=== PATIENT | female | born 1975 | race Caucasian/White ===

== ENCOUNTER 2017-08-08 15:59 | Inpatient (IN) | payer BC ==
[2017-08-08] MEDS ORDERED: NS 1000 ML 1,000 ML ONE (16:05)
[2017-08-08] MEDS ORDERED: ZOFRAN INJ 4 MG VIAL ONE (16:07)
[2017-08-08] MEDS ORDERED: NS 1000 ML 1,000 ML IV ONE (16:16)
[2017-08-08] MEDS ORDERED: ZOFRAN INJ 4 MG VIAL IVP ONE (16:16)
--- NOTE | 2017-08-08 16:19 | DR.NAUSEAF ---
HPI - Time Seen Time seen: 16:15 - Primary Care Physician Primary Care Physician: Declan BARKLEY - Complaints Chief Complaint Doctors Comments: Patient presents with complaint of nausea and vomiting for 3-4 days she has not been able to keep anything down. Chief Complaint:: PT. C/O NAUSEA/VOMITING THAT BEGAN ON MONDAY. PT. UNABLE TO KEEP ANYTHING DOWN. PT. SEEN PCP YESTERDAY AND WAS SWABBED FOR THE FLU WHICH TESTED NEGATIVE. PT. C/O WEAKNESS AND DIZZINESS. - Source History Provided: Patient - Mode of Arrival Mode of Arrival: Wheelchair - Timing Onset of Chief Complaint: 08/03/17 PMH - PMH Past Medical History: Yes Past Medical History: Hypertension, Hyperthyroidism Past Surgical History: Yes Surgical History: Cholecystectomy, [employer] Surgery, Hysterectomy - Family History History of Family Medical Conditions: No - Social History Does patient currently use any type of tobacco product: Yes Have you used tobacco products in the last 12 months: Yes Type of Tobacco Use: Cigarettes Does any household member use tobacco: No Alcohol Use: None Do you use any recreational Drugs:: No Lives With: Family Lives Where: Home - infectious screening In the last 2 months have you had wt loss of >10#?: NO Have you had fever, night sweats or hemotysis?: No Have you traveled outside the country in the last 6 months?: No Isolation: Standard ROS - Review of Systems Eyes: No Symptoms Reported ENTM: No Symptoms Reported Respiratoy: No Symptoms Reported Cardiovascular: No Symptoms Reported Gastrointestinal/Abdominal: No Symptoms Reported Genitourinary: No Symptoms Reported Neurological: No Symptoms Reported Musculoskeletal: No Symptoms Reported Integumentary: Change in Color (pale) Hematologic/Lymphatic: No Symptoms Reported Endocrine: No Symptoms Reported Psychiatric: No Symptoms Reported All Other Systems: Reviewed and Negative PE - Vital Signs Vitals: Temperature 97.4 F Pulse Rate 122 Respiratory Rate 22 Blood Pressure 110/68 O2 Sat by Pulse Oximetry 98 - General Limitations: No Limitations General Appearance: Alert, In No Apparent Distress - Head Head Exam: Normal Inspection, Atraumatic - Eyes Eye exam: Normal Appearance, PERRL, EOMI - ENT ENT Exam: Normal Exam - Neck Neck Exam: Normal Inspection, Full ROM - Chest Chest Inspection: Normal Inspection - Respiratory Respiratory Exam: Normal Lung Sounds Bilat Respiratory Exam: Bilateral Clear to Auscultation - Cardiovascular Cardiovascular Exam: Regular Rate, Normal Rhythm - Abdominal Exam Abdominal Exam: Normal Inspection, Normal Bowel Sounds Abdominal Tenderness: negative: RUQ, RLQ, LUQ, LLQ, Epigastrium, Suprapubic, Diffuse, Mild, Moderate, Severe, Other - Rectal Rectal Exam: Deferred - External Exam: Female: Deferred : Speculum Exam (Female): Deferred : Bimanual Exam (female): Deferred - Extremities Extremities Exam: Full ROM. negative: Normal Capillary Refill (prolong) - Back Back Exam: Normal Inspection - Neurologic Neurological Exam: Alert, Oriented X3, CN II-XII Intact - Psychiatric Psychiatric Exam: Normal Affect - Skin Skin Exam: Warm, Dry, Intact Course - Reevaluation 1st: Improved (decreased in vomiting, continued nausea) - Consultation Called: 17:15 (Dr Amador agreed to admit for further evaluation and treatment) ROR - Labs Reviewed Result Diagrams: 08/08/17 16:08 08/08/17 16:08 Laboratory: WBC 14.5 X10^3/uL (3.6-10.0) H 08/08/17 16:08 RBC 5.05 X10^6/uL (3.5-5.4) 08/08/17 16:08 Hgb 12.6 g/dL (12.0-16.0) 08/08/17 16:08 Hct 38.9 % (36.0-47.0) 08/08/17 16:08 MCV 77.2 fL (80.0-100.0) L 08/08/17 16:08 MCH 25.1 pg (27.0-34.0) L 08/08/17 16:08 MCHC 32.5 g/dL (33.0-35.0) L 08/08/17 16:08 RDW 14.3 % (11.6-16.5) 08/08/17 16:08 Plt Count 426 X10^3/uL (150.0-450.0) 08/08/17 16:08 Plt Count Comment Adequate (ADEQUATE) 08/08/17 16:08 MPV 8.9 fL (7.4-11.0) 08/08/17 16:08 Neut % 71.3 % (42.0-75.0) 08/08/17 16:08 Lymph % 17.0 % (21.0-51.0) L 08/08/17 16:08 Logan % 11.1 % (0.0-13.0) 08/08/17 16:08 Eos % 0.2 % (0.9-2.9) L 08/08/17 16:08 Baso % 0.4 % (0.2-1.0) 08/08/17 16:08 Neut # 10.3 x10^3/uL (2.2-4.8) H 08/08/17 16:08 Lymph # 2.5 X10^3/uL (1.3-2.9) 08/08/17 16:08 Logan # 1.6 x10^3/uL (0.3-0.8) H 08/08/17 16:08 Eos # 0.0 x10^3/uL (0.0-0.2) 08/08/17 16:08 Baso # 0.1 X10^3/uL (0.0-0.1) 08/08/17 16:08 Absolute Nucleated RBC 0.0 /100WBC 08/08/17 16:08 Plt Morphology Comment Normal (NORMAL) 08/08/17 16:08 RBC Morphology Abnormal (NORMAL) A 08/08/17 16:08 Hypochromasia Slight A 08/08/17 16:08 Sodium 140 mmol/L (136-145) 08/08/17 16:08 Corrected Sodium 141 mmol/L (136-145) 08/08/17 16:08 Potassium 2.9 mmol/L (3.5-5.1) L* 08/08/17 16:08 Chloride 87 mmol/L (98-107) L 08/08/17 16:08 Carbon Dioxide 43.4 mmol/L (21-32) H* 08/08/17 16:08 BUN 58 mg/dL (7-18) H 08/08/17 16:08 Creatinine 2.82 mg/dL (0.55-1.02) H 08/08/17 16:08 Est GFR (MDRD) Af Amer 24 (>60) L 08/08/17 16:08 Est GFR (MDRD) Non-Af 20 (>60) L 08/08/17 16:08 Glucose 149 mg/dL (65-99) H 08/08/17 16:08 Calcium 9.7 mg/dL (8.5-10.1) 08/08/17 16:08 Corrected Calcium TNP 08/08/17 16:08 Total Bilirubin 0.30 mg/dL (0.2-1.0) 08/08/17 16:08 AST 107 Units/L (15-37) H 08/08/17 16:08 ALT 84 Units/L (12-78) H 08/08/17 16:08 Alkaline Phosphatase 128 Units/L (46-116) H 08/08/17 16:08 Total Protein 8.2 g/dL (6.4-8.2) 08/08/17 16:08 Albumin 4.2 g/dL (3.4-5.0) 08/08/17 16:08 Globulin 4.0 g/dL (2.5-4.5) 08/08/17 16:08 Albumin/Globulin Ratio 1.1 Ratio (1.1-2.1) 08/08/17 16:08 - Diagnosis Discharge Problem: Prerenal azotemia, Hypokalemia, Nausea and vomiting in adult patient - Discharge Plan Condition: Stable - Follow ups/Referrals Follow ups/Referrals: ERWIN BARKLEY [Primary Care Provider] - 3 days - Instructions
[2017-08-08 16:30] LABS: BASOPHILS # (AUTO) 0.1 X10^3/uL (0.0-0.1); BASOPHILS % (AUTO) 0.4 % (0.2-1.0); EOSINOPHILS % (AUTO) 0.2 % (0.9-2.9); HEMATOCRIT 38.9 % (36.0-47.0); HEMOGLOBIN 12.6 g/dL (12.0-16.0); LYMPHOCYTES # (AUTO) 2.5 X10^3/uL (1.3-2.9); MEAN CORPUSCULAR HEMOGLOBIN 25.1 pg (27.0-34.0); MEAN CORPUSCULAR HGB CONC 32.5 g/dL (33.0-35.0); MEAN CORPUSCULAR VOLUME 77.2 fL (80.0-100.0); MEAN PLATELET VOLUME 8.9 fL (7.4-11.0); MONOCYTES # (AUTO) 1.6 x10^3/uL (0.3-0.8); MONOCYTES % (AUTO) 11.1 % (0.0-13.0); NEUTROPHILS # (AUTO) 10.3 x10^3/uL (2.2-4.8); NEUTROPHILS % (AUTO) 71.3 % (42.0-75.0); PLATELET COUNT 426 X10^3/uL (150.0-450.0); RED BLOOD COUNT 5.05 X10^6/uL (3.5-5.4); RED CELL DISTRIBUTION WIDTH 14.3 % (11.6-16.5); WHITE BLOOD COUNT 14.5 X10^3/uL (3.6-10.0)
[2017-08-08 16:40] LABS: ALANINE AMINOTRANSFERASE 84 Units/L (12-78); ALBUMIN 4.2 g/dL (3.4-5.0); ALKALINE PHOSPHATASE 128 Units/L (46-116); ASPARTATE AMINO TRANSFERASE 107 Units/L (15-37); BLOOD UREA NITROGEN 58 mg/dL (7-18); CALCIUM 9.7 mg/dL (8.5-10.1); CHLORIDE 87 mmol/L (98-107); COR NA(FOR HYPERGLY) 141 mmol/L (136-145); CREATININE 2.82 mg/dL (0.55-1.02); SODIUM 140 mmol/L (136-145); TOTAL PROTEIN 8.2 g/dL (6.4-8.2); eGFR BLACK RACES 24 (>60); eGFR NON BLACK RACES 20 (>60)
[2017-08-08 16:42] LABS: CARBON DIOXIDE 43.4 mmol/L (21-32)
[2017-08-08 16:57] LABS: PLATELET MORPHOLOGY COMMENT NORMAL (NORMAL)
[2017-08-08 16:58] LABS: HYPOCHROMASIA SLIGHT
--- NOTE | 2017-08-08 16:59 | RAD ---
HISTORY: Vomiting, weakness Study: Acute abdominal series Comparison: None Findings: The lungs are clear without consolidation, effusion or pneumothorax. The cardiac and mediastinal con tours are within normal limits. There is a large volume of well-formed retained stool in the colon and rectum suggesting constipation . No gross free intraperitoneal air. No pathological soft tissue mass or calcification can be observe d. The bony structures are grossly intact. IMPRESSION: 1. No acute cardiopulmonary disease. 2. Large volume of retained stool in the colon and rectum suggesting constipation. Reported By:
[2017-08-08] MEDS ORDERED: NS + KCL 20 MEQ/L 1,000 ML IV ONE ×2 (17:36→22:28)
[2017-08-08] MEDS: K-LYTE EFFERVESCENT PO SCH (17:40)
[2017-08-08] MEDS: NS IV SCH ×2 (17:41)
[2017-08-08] MEDS: POTASSIUM CHLORIDE IV SCH ×2 (17:41)
[2017-08-08 17:51] LABS: BILIRUBIN,URINE NEGATIVE (NEGATIVE); BLOOD/HEMOGLOBIN,URINE 1+ (NEGATIVE); GLUCOSE, URINE NEGATIVE (NEGATIVE); KETONES,URINE NEGATIVE (NEGATIVE); LEUKOCYTE ESTERASE ,URINE 1+ (NEGATIVE); NITRITES,URINE NEGATIVE (NEGATIVE); PROTEIN,URINE 2+ (NEGATIVE); UROBILINOGEN,URINE NORMAL (NORMAL)
[2017-08-08] MEDS ORDERED: NS 1000 ML 1,000 ML with POTASSIUM CHLORIDE INJ 10 MEQ VIAL 10 MEQ IV SCH ×2 (18:00)
[2017-08-08 18:01] LABS: COLOR,URINE YELLOW (YELLOW)
[2017-08-08 18:02] LABS: APPEARANCE,URINE SLIGHTLY HAZY (CLEAR); BACTERIA,URINE TRACE /HPF (NEGATIVE); HYALINE CASTS, URINE MODERATE /LPF (NEGATIVE); MUCUS,URINE MANY /HPF (NEGATIVE); RBC,URINE 0-2 /HPF (NEGATIVE); SQUAMOUS EPITHELIAL CELL,UR RARE /HPF (NEGATIVE)
[2017-08-08] MEDS ORDERED: COLACE CAP 100 MG PO PRN (19:33)
[2017-08-08] MEDS ORDERED: MILK OF MAGNESIA PO PRN (19:33)
[2017-08-08] MEDS ORDERED: PHENERGAN INJ 25 MG IV PRN (19:45)
[2017-08-08] MEDS ORDERED: MAG-OX TAB PO PRN (22:28)
[2017-08-08] MEDS ORDERED: K-LYTE EFFERVESCENT PO PRN (22:28)
[2017-08-08] MEDS ORDERED: POTASSIUM CHL 60 MEQ/NS 0.45% 500 ML IV PRN (22:28)
[2017-08-08] MEDS ORDERED: POTASSIUM CHLORIDE LIQ 20 MEQ UDC PO PRN (22:28)
[2017-08-08] MEDS ORDERED: POTASSIUM CHL 40 MEQ/NS 0.45% 500 ML IV PRN (22:28)
[2017-08-08] MEDS ORDERED: MAGNESIUM SULFATE 1 GM/100 mL PREMIX 1 GM/100 ML BAG IV PRN (22:28)
[2017-08-08] MEDS ORDERED: K-RIDER 10 MEQ/NS 100 ML 10 MEQ/100 ML BAG IV PRN (22:28)
[2017-08-09] MEDS ORDERED: NS 100 ML IV 100 ML IV ONE (00:10)
[2017-08-09] MEDS ORDERED: NS 500 ML IV 500 ML IV ONE (02:31)
[2017-08-09] MEDS: NS IV SCH ×4 (03:19→09:24)
[2017-08-09] MEDS: POTASSIUM CHLORIDE IV SCH ×4 (03:19→09:24)
[2017-08-09] MEDS ORDERED: NS + KCL 20 MEQ/L 1,000 ML IV ONE (03:41)
[2017-08-09 06:25] LABS: BASOPHILS % (AUTO) 0.4 % (0.2-1.0); EOSINOPHILS # (AUTO) 0.1 x10^3/uL (0.0-0.2); EOSINOPHILS % (AUTO) 1.3 % (0.9-2.9); HEMOGLOBIN 9.7 g/dL (12.0-16.0); LYMPHOCYTES # (AUTO) 2.3 X10^3/uL (1.3-2.9); LYMPHOCYTES % (AUTO) 22.9 % (21.0-51.0); MEAN CORPUSCULAR HEMOGLOBIN 25.3 pg (27.0-34.0); MEAN CORPUSCULAR HGB CONC 32.3 g/dL (33.0-35.0); MEAN CORPUSCULAR VOLUME 78.3 fL (80.0-100.0); MEAN PLATELET VOLUME 8.9 fL (7.4-11.0); MONOCYTES # (AUTO) 1.1 x10^3/uL (0.3-0.8); MONOCYTES % (AUTO) 11.2 % (0.0-13.0); NEUTROPHILS # (AUTO) 6.5 x10^3/uL (2.2-4.8); NEUTROPHILS % (AUTO) 64.2 % (42.0-75.0); PLATELET COUNT 284 X10^3/uL (150.0-450.0); RED BLOOD COUNT 3.84 X10^6/uL (3.5-5.4); RED CELL DISTRIBUTION WIDTH 14.5 % (11.6-16.5); WHITE BLOOD COUNT 10.1 X10^3/uL (3.6-10.0)
[2017-08-09 06:49] LABS: ALANINE AMINOTRANSFERASE 52 Units/L (12-78); ALBUMIN 2.9 g/dL (3.4-5.0); ALKALINE PHOSPHATASE 83 Units/L (46-116); ASPARTATE AMINO TRANSFERASE 45 Units/L (15-37); BLOOD UREA NITROGEN 42 mg/dL (7-18); CALCIUM 7.7 mg/dL (8.5-10.1); CARBON DIOXIDE 30.3 mmol/L (21-32); CHLORIDE 105 mmol/L (98-107); COR CA(FOR HYPOALB) 8.6 mg/dL (8.5-10.1); SODIUM 143 mmol/L (136-145); TOTAL PROTEIN 5.8 g/dL (6.4-8.2); eGFR BLACK RACES > 60 (>60); eGFR NON BLACK RACES 58 (>60)
[2017-08-09 07:23] LABS: HYPOCHROMASIA 1+; MICROCYTOSIS 1+; PLATELET MORPHOLOGY COMMENT NORMAL (NORMAL)
[2017-08-09] MEDS: K-LYTE EFFERVESCENT PO SCH (08:52)
[2017-08-09] MEDS ORDERED: NS 1000 ML 1,000 ML ONE (09:20)
[2017-08-09] MEDS: ZOFRAN INJ 4 MG VIAL IVP PRN (09:24)
[2017-08-09] MEDS: COLACE CAP 100 MG PO SCH ×2 (09:38→21:05)
[2017-08-09] MEDS: MILK OF MAGNESIA PO SCH ×5 (09:38→21:05)
[2017-08-09] MEDS: MIRALAX POWDER (1 DOSE 17GM) PO SCH (09:39)
[2017-08-09] MEDS: SYNTHROID 50 mcg TAB PO SCH (11:49)
[2017-08-09] MEDS: ZESTRIL TAB 5 MG PO SCH (11:49)
[2017-08-09] MEDS: ZANTAC PO SCH ×2 (11:50→21:05)
--- NOTE | 2017-08-09 12:59 | DR.H&P ---
H&P - History & Physical for Day of: H&P Date: 08/08/17 - Chief Complaint Chief Complaint: nausea, vomiting - Allergies Allergies/Adverse Reactions: Allergies Allergy/AdvReac Type Severity Reaction Status Date / Time No Known Drug Allergies Allergy Verified 08/08/17 16:14 - History of Present Illness History of Present Illness: is a 42 year old patient of Pat DrAvailable who presented to the emergency room with complaints of nausea and vomiting. Patient reports that symptoms have been present for 3-4 days and has been unable to keep anything down. Patient reports that she was seen by her PCP yesterday and was swabbed for the flu, in which she tested negative. Associated symptoms are weakness and dizziness. On examination, Patient is noted to be pale in color. Heart rate is note to be rapid, regular. Bilateral lungs are noted to be clear to auscultation. Abdomen is round, soft, and noted with mild, diffuse tenderness on palpation. Skin turgor is decreased and capillary refill is noted to be prolonged. There is normal range of motion noted to all extremities. On arrival, vitals were 97.4, 122, 22, 98%RA, 110/68. Labs were obtained. Abnormal Labs include the following: WBC 14.5, MCV 77.2, MCH 25.14, MCHC 32.5, Lymph% 17.0, Eos% 0.2, Neut# 10.3, [place]# 1.6, RBC Morphology Abnormal A, Hypochromasia Slight A, Potassium 2.9, Chloride 87, Carbon Dioxide 43.4, BUN 58, Creatinine 2.82, GFR(AA) 24, GFR(non) 20, Glucose 149, AST 107, ALT 84, Alk Phos 128. Urinalysis reported: Brayan Slightly Hazy, Protein 2+, Occult Blood 1+, Leuk Jennifer 1+, RBC 0-2, WBC 0-4, Squam Epith Cells Rare, Bacteria Trace, Hyaline Casts Moderate, Mucus Many; Urine culture set up at this time. A urine culture is pending. An abdomen xray was obtained and reported : No acute cardiopulmonary disease. Large volume of retained stool in the colon and rectum suggesting constipation. A normal saline bolus was given. Potassium was supplemented with 50meq of oral potassium, as well as adding potassium in her IV fluids. We admitted patient for further treatment and evaluation for dehydration and prerenal azotemia. We will continue with gentle IV hydration and follow up with additional labs in the morning. - Past Medical History Past Medical History: Hypertension, Hyperthyroidism - Past Surgical History Surgical History: Appendectomy, , Cholecystectomy, Hysterectomy - Social History Does patient currently use any type of tobacco product: Yes Have you used tobacco products in the last 12 months: Yes Type of Tobacco Use: Cigarettes Does any household member use tobacco: No Alcohol Use: None Drug Use: None - Medications Home Medications: Levothyroxine Sodium [SYNTHROID 50 mcg *] 1 tab PO DAILY 08/08/17 [History Confirmed 08/08/17] Lisinopril [ZESTRIL *] 1 tab PO DAILY 08/08/17 [History Confirmed 08/08/17] Ondansetron [Zofran Odt] 1 tab SL Q6HR PRN 08/08/17 [History Confirmed 08/08/17] Ranitidine HCl [ZANTAC TAB 150 MG *] 1 tab PO BID 08/08/17 [History Confirmed ] - Review of Systems Constitutional: Weakness. denies: Fever, Chills, Sweats Eyes: No Symptoms Reported. denies: See HPI, Pain, Vision Change, Conjunctivae Inflammation, Eyelid Inflammation, Redness, Other ENT: No Symptoms Reported. denies: See HPI, Ear Pain, Ear Discharge, Nose Pain , Nose Discharge, Nose Congestion, Mouth Pain, Mouth Swelling, Throat Pain, Throat Swelling, Other Respiratory: No Symptoms Reported. denies: See HPI, Cough, Dry, Shortness of Breath, Hemoptysis, SOB with Excertion, Pleuritic Pain, Sputum, Wheezing, Other Cardiovascular: No Symptoms Reported. denies: Chest Pain, See HPI, Palpitations , Orthopnea, Paroxysmal Noc. Dyspnea, Edema, Light Headedness, Other Gastrointestinal: See HPI, Nausea, Vomiting, Abdominal Pain Genitourinary: No Symptoms Reported. denies: See HPI, Dysuria, Frequency, Incontinence, Hematuria, Retention, Other Musculoskeletal: No Symptoms Reported. denies: See HPI, Shoulder Pain, Arm Pain , Back Pain, Hand Pain, Leg Pain, Foot Pain, Neck Pain, Other Skin: No Symptoms Reported. denies: See HPI, Rash, Lesions, Jaundice, Bruising , Wound, Ecchymosis, Other Neurological: Weakness - Physical Exam Vital Signs: Temperature 98.8 F Pulse Rate [Right Brachial] 94 Pulse Rate 122 Respiratory Rate 18 Blood Pressure [Right Arm] 132/60 Blood Pressure 110/68 O2 Sat by Pulse Oximetry 99 Oriented: Normal. negative: Time, Person, Place, Not Oriented, Unable to test, Other Eyes: Normal. negative: Blurred Vision, Diplopia, Discharge, Pain, Redness, Photophobia, Other Ear: Normal. negative: Right, Left, Swelling, Ecchymosis, Hemotypanum, Abrasion , Laceration Nose: Normal. negative: Injected, Discharge, Blood, Other Throat: Normal. negative: Tonsillar Hypertrophy, Red, Exudate, Dry, Other Respiratory: Clear Throughout Cardiovascular: Tachycardia : Normal Auscultation: Bowel Sounds: Normal Palpation: Normal Tenderness: Diffuse, Mild Skin: Decreased Turgur Musculoskeletal: Normal Psychiatric: Normal Mood Description: Calm Affect: Normal Speech Pattern: Clear - Assessment/Plan (1) Prerenal azotemia Status: Acute Plan: normal saline with 20meq kcl at 200ml/hr, continue to monitor (2) Hypokalemia Status: Acute Plan: normal saline with 20meq kcl at 200ml/hr, potassium protocol, continue to monitor (3) Nausea and vomiting in adult patient Status: Acute Plan: zofran 4mg iv q8h prn, phenergan 12.5mg iv q6h prn, continue to monitor
[2017-08-09] MEDS: NS 1/2 + KCL 20 MEQ/L 1,000 ML IV SCH ×2 (14:00→21:06)
[2017-08-09] MEDS ORDERED: DULCOLAX SUPPOSITORY 10 MG RECTAL SCH (15:00)
[2017-08-10] MEDS: NS 1/2 + KCL 20 MEQ/L 1,000 ML IV SCH (06:19)
[2017-08-10 06:27] LABS: BASOPHILS # (AUTO) 0.1 X10^3/uL (0.0-0.1); BASOPHILS % (AUTO) 1.1 % (0.2-1.0); EOSINOPHILS # (AUTO) 0.5 x10^3/uL (0.0-0.2); EOSINOPHILS % (AUTO) 6.2 % (0.9-2.9); HEMATOCRIT 27.8 % (36.0-47.0); HEMOGLOBIN 9.1 g/dL (12.0-16.0); LYMPHOCYTES # (AUTO) 2.5 X10^3/uL (1.3-2.9); LYMPHOCYTES % (AUTO) 31.1 % (21.0-51.0); MEAN CORPUSCULAR HEMOGLOBIN 25.7 pg (27.0-34.0); MEAN CORPUSCULAR HGB CONC 32.6 g/dL (33.0-35.0); MEAN CORPUSCULAR VOLUME 78.8 fL (80.0-100.0); MONOCYTES # (AUTO) 0.7 x10^3/uL (0.3-0.8); MONOCYTES % (AUTO) 8.5 % (0.0-13.0); NEUTROPHILS # (AUTO) 4.3 x10^3/uL (2.2-4.8); NEUTROPHILS % (AUTO) 53.1 % (42.0-75.0); PLATELET COUNT 274 X10^3/uL (150.0-450.0); RED BLOOD COUNT 3.52 X10^6/uL (3.5-5.4); RED CELL DISTRIBUTION WIDTH 14.3 % (11.6-16.5); WHITE BLOOD COUNT 8.2 X10^3/uL (3.6-10.0)
[2017-08-10 06:49] LABS: ALANINE AMINOTRANSFERASE 37 Units/L (12-78); ALKALINE PHOSPHATASE 80 Units/L (46-116); ASPARTATE AMINO TRANSFERASE 27 Units/L (15-37); BLOOD UREA NITROGEN 18 mg/dL (7-18); CALCIUM 8.2 mg/dL (8.5-10.1); CARBON DIOXIDE 23.3 mmol/L (21-32); CHLORIDE 107 mmol/L (98-107); CREATININE 0.43 mg/dL (0.55-1.02); SODIUM 139 mmol/L (136-145); eGFR BLACK RACES > 60 (>60); eGFR NON BLACK RACES > 60 (>60)
[2017-08-10 07:12] LABS: ANISOCYTOSIS SLIGHT; PLATELET MORPHOLOGY COMMENT NORMAL (NORMAL)
[2017-08-10] MEDS: ZANTAC PO SCH (08:15)
[2017-08-10] MEDS: MIRALAX POWDER (1 DOSE 17GM) PO SCH (08:15)
[2017-08-10] MEDS: SYNTHROID 50 mcg TAB PO SCH (08:15)
[2017-08-10] MEDS: COLACE CAP 100 MG PO SCH (08:15)
[2017-08-10] MEDS: ZOFRAN INJ 4 MG VIAL IVP PRN (08:16)
[2017-08-10] MEDS: K-LYTE EFFERVESCENT PO SCH (08:16)
[2017-08-10] MEDS: ZESTRIL TAB 5 MG PO SCH (08:16)
[2017-08-10] MEDS: MILK OF MAGNESIA PO SCH (08:16)
[2017-08-10 12:08] VITALS: BP 128/75
== END 2017-08-10 13:20 | disposition home or self-care (01) | DRG 641 ==
LOC: ER 15:59 → OBS 17:47 → MED/SURG 08-09 12:12
PROVIDERS: ADMIT Internal Medicine; ATTEND Internal Medicine
DX: E86.0 Dehydration (principal); R79.89 Other specified abnormal findings of blood chemistry; E87.6 Hypokalemia; R11.2 Nausea with vomiting, unspecified; I10 Essential (primary) hypertension; R53.1 Weakness; R42 Dizziness and giddiness
CPT/HCPCS: 36415; 51702; 74022; 80053; 81001; 83735; 84132; 85025; 87086; 96365; 96367; 96374; 99283; 99284; A4216; A4222; J7030; J2405; J2550; J3480